=== PATIENT | female | born 1965 | race African-American/Black ===

== ENCOUNTER → 2018-02-17 08:30 | Outpatient (CLI) | payer BC ==
[~2018-02-17 08:30] MED LIST: AMBIEN10 MG PO; COLACE100 MG PO; HYDROCHLOROTHIA25 MG PO; K-DUR20 MEQ PO; LISINOPRIL-HCTZ1 T13 PO; PRILOSEC20 MG PO
== END | disposition home or self-care (01) ==
LOC: D.MRI 08:30
DX: M54.12 Radiculopathy, cervical region (principal)

== ENCOUNTER → 2018-11-19 08:07 | Outpatient (CLI) | payer BC | END | disposition home or self-care (01) | LOC: D.CT 08:07 | PROVIDERS: ATTEND Family Medicine | DX: R91.1 Solitary pulmonary nodule (principal) ==

== ENCOUNTER → 2020-08-16 10:30 | Outpatient (CLI) | payer BC | END | disposition home or self-care (01) | LOC: D.HCCARDIO 10:30 | PROVIDERS: ATTEND Internal Medicine Cardiovascular Disease | DX: I20.9 Angina pectoris, unspecified (principal) ==

== ENCOUNTER → 2020-09-15 11:44 | Outpatient (CLI) | payer BC | END | disposition home or self-care (01) | LOC: D.CT 11:30 | PROVIDERS: ATTEND Family Medicine | DX: R10.31 Right lower quadrant pain (principal) ==